=== PATIENT | female | born 1990 | race Caucasian/White ===

== ENCOUNTER 2019-05-31 23:21 | Inpatient (IN) | payer BC ==
[2019-06-01] MEDS ORDERED: Sodium Chloride 0.9% 2.5 ML Syringe FLUSH PRN (02:10)
[2019-06-01] MEDS ORDERED: Tranexamic Acid 1,000 MG in Sodium Chloride 0.9% 100 ML IV PRN (02:10)
[2019-06-01] MEDS ORDERED: Carboprost Tromethamine 250 MCG/1 ML Amp IM PRN (02:10)
[2019-06-01] MEDS ORDERED: Butorphanol 1 MG/ML SDV IVPUSH PRN (02:10)
[2019-06-01] MEDS ORDERED: Lidocaine 1% 50 ML MDV INJECT PRN (02:10)
[2019-06-01] MEDS ORDERED: Methylergonovine 0.2 MG/1 ML Amp IM PRN (02:10)
[2019-06-01] MEDS ORDERED: Sodium Chloride 0.9% 10 ML Syringe FLUSH PRN (02:10)
[2019-06-01] MEDS ORDERED: Nalbuphine 10 MG/1 ML Vial IVPUSH PRN (02:10)
[2019-06-01] MEDS ORDERED: Sodium Chloride 0.9% 10 ML SDV IV PRN (02:10)
[2019-06-01] MEDS ORDERED: Water For Irrigation,Sterile 1,000 ML Container IRR PRN (02:10)
[2019-06-01] MEDS ORDERED: Misoprostol 200 MCG Tab PO PRN (02:10)
[2019-06-01] MEDS ORDERED: Ondansetron 4 MG/2 ML SDV IVPUSH PRN (02:10)
[2019-06-01] MEDS ORDERED: Oxytocin/0.9 % Sodium Chloride 30 UNIT/500 ML BAG IV SCH ×2 (02:15→05:00)
[2019-06-01] MEDS: Lactated Ringers 1,000 ML IV SCH ×3 (02:35→05:00)
[2019-06-01] MEDS ORDERED: fentaNYL 100 MCG/2 ML SDV ONE (03:08)
[2019-06-01] MEDS ORDERED: Ropivacaine HCl/PF 100 ML ONE (03:09)
--- NOTE | 2019-06-01 03:37 | PCM.PREANE ---
Preanesthetic Assessment - Anesthesia/Transfusion/Family Hx Anesthesia History: Prior Anesthesia Without Reaction Family History of Anesthesia Reaction: No - Review of Systems Neurological: Other - Physical Assessment NPO Status Date: 06/01/19 NPO Status Time: 00:05 ASA Class: 1 - Lab Values: Laboratory Last Values WBC 14.70 K/uL (4.0-11.0) H 06/01/19 02:30 RBC 4.05 M/uL (4.30-5.90) L 06/01/19 02:30 Hgb 12.0 g/dL (12.0-16.0) 06/01/19 02:30 Hct 34.8 % (36.0-46.0) L 06/01/19 02:30 MCV 85.9 fL (80.0-98.0) 06/01/19 02:30 MCH 29.6 pg (27.0-32.0) 06/01/19 02:30 MCHC 34.5 g/dL (31.0-37.0) 06/01/19 02:30 RDW Std Deviation 42.0 fl (28.0-62.0) 06/01/19 02:30 RDW Coeff of Megan 14 % (11.0-15.0) 06/01/19 02:30 Plt Count 282 K/uL (150-400) 06/01/19 02:30 MPV 10.50 fL (7.40-12.00) 06/01/19 02:30 Nucleated RBC % 0.0 /100WBC 06/01/19 02:30 Nucleated RBCs # 0 K/uL 06/01/19 02:30 Blood Type AB POSITIVE 06/01/19 02:10 Antibody Screen NEGATIVE 06/01/19 02:10 - Allergies Allergies/Adverse Reactions: Allergies Allergy/AdvReac Type Severity Reaction Status Date / Time No Known Allergies Allergy Verified 06/01/19 02:22 - Acknowledgements Anesthesia Type Planned: Epidural Pt an Appropriate Candidate for the Planned Anesthesia: Yes Alternatives and Risks of Anesthesia Discussed w Pt/Guardian: Yes Pt/Guardian Understands and Agrees with Anesthesia Plan: Yes PreAnesthesia Questionnaire - CURRENT (IN HOUSE) MEDS Current Meds: Current Medications Butorphanol Tartrate (Stadol) 1 mg IVPUSH Q1H PRN PRN Reason: Pain Carboprost Tromethamine (Hemabate Ds) 250 mcg IM ASDIRECTED PRN PRN Reason: Post Hemorrhage Tranexamic Acid 1,000 mg/ (Sodium Chloride) 110 mls @ 660 mls/hr IV ONETIME PRN PRN Reason: Bleeding Lactated Ringer's (Ringers, Lactated) 1,000 mls @ 150 mls/hr IV ASDIRECTED [facility] Last Admin: 06/01/19 03:27 Dose: 999 mls/hr Oxytocin/Sodium Chloride (Oxytocin 30 Unit/500 Ml-Ns) 30 unit in 500 mls @ 500 mls/hr IV TITRATE [facility] Lidocaine HCl (Xylocaine 1%) 50 ml INJECT ONETIME PRN PRN Reason: Laceration repair Methylergonovine Maleate (Methergine) 0.2 mg IM ASDIRECTED PRN PRN Reason: Post Hemorrhage Misoprostol (Cytotec) 200 mcg PO ONETIME PRN PRN Reason: Post Hemorrhage Nalbuphine HCl (Nubain) 10 mg IVPUSH Q1H PRN PRN Reason: Pain (severe 7-10) Ondansetron HCl (Zofran) 4 mg IVPUSH Q4H PRN PRN Reason: Nausea/Vomiting Sodium Chloride (Saline Flush) 10 ml FLUSH ASDIRECTED PRN PRN Reason: Keep Vein Open Sodium Chloride (Saline Flush) 2.5 ml FLUSH ASDIRECTED PRN PRN Reason: Keep Vein Open Sodium Chloride (Normal Saline) 10 ml IV ASDIRECTED PRN PRN Reason: IV Use Sterile Water (Sterile Water For Irrigation) 1,000 ml IRR ASDIRECTED PRN PRN Reason: delivery Discontinued Medications Fentanyl (Sublimaze) Confirm Administered Dose 100 mcg .ROUTE .STK-MED ONE Stop: 06/01/19 03:09 Ropivacaine (Naropin 0.2%) Confirm Administered Dose 100 mls @ as directed .ROUTE .STK-MED ONE Stop: 06/01/19 03:10
--- NOTE | 2019-06-01 03:41 | PCM.PRNOTE ---
- Free Text/Narrative Note: Anes Note Patient requests epidural for L&D. Sitting position, level L3-L4 midline approach. Sterile technique, chloraprep scrub to lumbar area. Sterile fenestrated drape applied. Epidural space easily achieved using VANESSA technique. VANESSA at 4 cm. Cath thrreaded 5 cm with ease. Cath secured at skin at 10 cm using sterile clear adhesive dressing. 0323 Test 3 cc 1.5% lido wtih epi negative. 0326 Load 10 cc 0.2% ropivicaine with 1 mcg cc fentanyl in slow divided doses. 0329 Pump started with 90 cc same solution at 8 cc hr with 6 cc q 20 min prn bolus. Michael well. Time with patient [id number] Terrance Pineda PROJECT DIRECTOR
[2019-06-01] MEDS ORDERED: Terbutaline 1 MG/ML SDV SUBCUT PRN (04:57)
[2019-06-01] MEDS ORDERED: oxyCODONE 5 MG Tab PO PRN (08:58)
[2019-06-01] MEDS ORDERED: Docusate Sodium 100 MG Cap PO PRN (08:58)
[2019-06-01] MEDS ORDERED: Bisacodyl 10 MG Supp RECTAL PRN (08:58)
[2019-06-01] MEDS ORDERED: Lanolin 100% Cream 7 GM Tube TOP PRN (08:58)
[2019-06-01] MEDS ORDERED: Witch Hazel Medicated Pads 40/Jar TOP PRN (08:58)
[2019-06-01] MEDS ORDERED: Ibuprofen 400 MG Tab PO PRN (08:58)
[2019-06-01] MEDS ORDERED: Acetaminophen 500 MG Tab PO PRN ×2 (08:58)
[2019-06-01] MEDS ORDERED: Benzocaine/Menthol 20%-0.5% Spray 78 GM Cannister TOP PRN (08:58)
--- NOTE | 2019-06-01 09:04 | PCM.DEL ---
L & D Note - General Info Date of Service: 06/01/19 Mother's Due Date: 06/03/19 - Delivery Note Labor: Augmented by ARM, Augmented by Oxytocin Delivery Outcome: Livebirth Delivery Method: Spontaneous Vaginal Delivery-Single Presentation: Left Occiput Anterior (ROJELIO) Nuchal Cord: None Anesthesia Type: Epidural Anesthetic: Lidocaine (Xylocaine) 1% Plain Local Anesthetic Volume: 4cc Laceration: 2nd Degree Suture type: Other (monocryl) Suture size: 2-0 Placenta: Intact Cord: 3 Vessels Estimated Blood Loss: 300 Resuscitation Needed: No Score 1 min: 8 Score 5 min: 9 Delivery Comments (Free Text/Narrative):: live female delivered at 803am , 8/9 , weight 3630g - General Info Date of Service: 06/01/19 - Patient Data Weight - Most Recent: 91.172 kg I&O - Last 24 Hours: Intake & Output 05/31/19 06/01/19 06/01/19 22:59 06:59 14:59 Intake Total 950 Balance 950 Lab Results Last 24 Hours: Laboratory Results - last 24 hr 06/01/19 06/01/19 Range/Units 02:10 02:30 WBC 14.70 H (4.0-11.0) K/uL RBC 4.05 L (4.30-5.90) M/uL Hgb 12.0 (12.0-16.0) g/dL Hct 34.8 L (36.0-46.0) % MCV 85.9 (80.0-98.0) fL MCH 29.6 (27.0-32.0) pg MCHC 34.5 (31.0-37.0) g/dL RDW Std Deviation 42.0 (28.0-62.0) fl RDW Coeff of Megan 14 (11.0-15.0) % Plt Count 282 (150-400) K/uL MPV 10.50 (7.40-12.00) fL Nucleated RBC % 0.0 /100WBC Nucleated RBCs # 0 K/uL Blood Type AB POSITIVE Antibody Screen NEGATIVE Med Orders - Current: Current Medications Acetaminophen (Tylenol Extra Strength) 500 mg PO Q4H PRN PRN Reason: Pain Acetaminophen (Tylenol Extra Strength) 1,000 mg PO Q4H PRN PRN Reason: Pain Benzocaine/Menthol (Dermoplast Pain Relief 20%-0.5% [place]) 78 gm TOP ASDIRECTED PRN PRN Reason: Perineal Comfort Measure Bisacodyl (Dulcolax) 10 mg RECTAL ONETIME PRN PRN Reason: Constipation Carboprost Tromethamine (Hemabate Ds) 250 mcg IM ASDIRECTED PRN PRN Reason: Post Hemorrhage Docusate Sodium (Colace) 100 mg PO BID PRN PRN Reason: Constipation Emollient Ointment (Lansinoh Hpa) 0 gm TOP ASDIRECTED PRN PRN Reason: Sore Nipples Tranexamic Acid 1,000 mg/ (Sodium Chloride) 110 mls @ 660 mls/hr IV ONETIME PRN PRN Reason: Bleeding Lactated Ringer's (Ringers, Lactated) 1,000 mls @ 150 mls/hr IV ASDIRECTED [facility] Last Admin: 06/01/19 05:00 Dose: 125 mls/hr Oxytocin/Sodium Chloride (Oxytocin 30 Unit/500 Ml-Ns) 30 unit in 500 mls @ 500 mls/hr IV TITRATE [facility] Oxytocin/Sodium Chloride (Oxytocin 30 Unit/500 Ml-Ns) 30 unit in 500 mls @ 2 mls/hr IV TITRATE [facility]; Protocol Last Titration: 06/01/19 07:30 Dose: 6 munits/min, 6 mls/hr Ibuprofen (Motrin) 400 mg PO Q4H PRN PRN Reason: Pain Ibuprofen (Motrin) 800 mg PO Q6H PRN PRN Reason: Pain Lidocaine HCl (Xylocaine 1%) 50 ml INJECT ONETIME PRN PRN Reason: Laceration repair Last Admin: 06/01/19 08:05 Dose: 50 ml Methylergonovine Maleate (Methergine) 0.2 mg IM ASDIRECTED PRN PRN Reason: Post Hemorrhage Misoprostol (Cytotec) 200 mcg PO ONETIME PRN PRN Reason: Post Hemorrhage Nalbuphine HCl (Nubain) 10 mg IVPUSH Q1H PRN PRN Reason: Pain (severe 7-10) Ondansetron HCl (Zofran) 4 mg IVPUSH Q4H PRN PRN Reason: Nausea/Vomiting Oxycodone HCl (Oxycodone) 5 mg PO Q2H PRN PRN Reason: Pain Sodium Chloride (Saline Flush) 10 ml FLUSH ASDIRECTED PRN PRN Reason: Keep Vein Open Sodium Chloride (Saline Flush) 2.5 ml FLUSH ASDIRECTED PRN PRN Reason: Keep Vein Open Sodium Chloride (Normal Saline) 10 ml IV ASDIRECTED PRN PRN Reason: IV Use Sterile Water (Sterile Water For Irrigation) 1,000 ml IRR ASDIRECTED PRN PRN Reason: delivery Last Admin: 06/01/19 08:00 Dose: 1,000 ml Terbutaline Sulfate (Brethine) 0.25 mg SUBCUT ASDIRECTED PRN PRN Reason: Tacysystole Witch Sima (Tucks) 1 pad TOP ASDIRECTED PRN PRN Reason: comfort care Discontinued Medications Butorphanol Tartrate (Stadol) 1 mg IVPUSH Q1H PRN PRN Reason: Pain Fentanyl (Sublimaze) Confirm Administered Dose 100 mcg .ROUTE .STK-MED ONE Stop: 06/01/19 03:09 Ropivacaine (Naropin 0.2%) Confirm Administered Dose 100 mls @ as directed .ROUTE .STK-MED ONE Stop: 06/01/19 03:10 - Problem List & Annotations (1) Vaginal delivery SNOMED Code(s): 298383194 Code(s): O80 - ENCOUNTER FOR FULL-TERM UNCOMPLICATED DELIVERY Status: Acute Current Visit: Yes - Problem List Review Problem List Initiated/Reviewed/Updated: Yes - My Orders Last 24 Hours: My Active Orders 05/31/19 23:54 Up ad Kellen [RC] ASDIRECTED Vital Signs [RC] PER UNIT ROUTINE 06/01/19 02:10 RAPID PLASMA REAGIN, QUANT [REF] Routine Carboprost Tromethamine [Hemabate DS] 250 mcg IM ASDIRECTED PRN Lidocaine 1% [Xylocaine 1%] 50 ml INJECT ONETIME PRN Methylergonovine [Methergine] 0.2 mg IM ASDIRECTED PRN Nalbuphine [Nubain] 10 mg IVPUSH Q1H PRN Ondansetron [Zofran] 4 mg IVPUSH Q4H PRN Sodium Chloride 0.9% [Normal Saline] 10 ml IV ASDIRECTED PRN Sodium Chloride 0.9% [Saline Flush] 10 ml FLUSH ASDIRECTED PRN Sodium Chloride 0.9% [Saline Flush] 2.5 ml FLUSH ASDIRECTED PRN Tranexamic Acid [Cyklokapron] 1,000 mg Sodium Chloride 0.9% [Normal Saline] 100 ml IV ONETIME Water For Irrigation,Sterile [Sterile Water for Irrigation] 1,000 ml IRR ASDIRECTED PRN miSOPROStoL [Cytotec] 200 mcg PO ONETIME PRN 06/01/19 02:11 Patient Status [ADT] Routine May Shower [RC] ASDIRECTED Notify Provider [RC] PRN Up ad Kellen [RC] ASDIRECTED Vital Signs [RC] PER UNIT ROUTINE Peripheral IV Insertion Adult [OM.PC] Routine 06/01/19 02:15 Lactated Ringers [Ringers, Lactated] 1,000 ml IV ASDIRECTED Oxytocin/0.9 % Sodium Chloride [Oxytocin 30 Unit/500 ML-NS] 30 unit in 500 ml IV TITRATE 06/01/19 04:57 Bedrest Bathroom Privileges [RC] ASDIRECTED Communication Order [RC] ASDIRECTED Communication Order [RC] ASDIRECTED Notify Provider [RC] PRN Oxygen Therapy [RC] ASDIRECTED Vital Signs [RC] PER UNIT ROUTINE Terbutaline [Brethine] 0.25 mg SUBCUT ASDIRECTED PRN 06/01/19 05:00 Oxytocin/0.9 % Sodium Chloride [Oxytocin 30 Unit/500 ML-NS] 30 unit in 500 ml IV TITRATE Medication Administration Instruction [OM.PC] Q3H 06/01/19 08:58 Acetaminophen [Tylenol Extra Strength] 1,000 mg PO Q4H PRN Acetaminophen [Tylenol Extra Strength] 500 mg PO Q4H PRN Benzocaine/Menthol [Dermoplast Pain Relief 20%-0.5% [place]] 78 gm TOP ASDIRECTED PRN Docusate Sodium [Colace] 100 mg PO BID PRN Ibuprofen [Motrin] 400 mg PO Q4H PRN Ibuprofen [Motrin] 800 mg PO Q6H PRN Lanolin [Lansinoh HPA] See Dose Instructions TOP ASDIRECTED PRN Witch Sima [Tucks] 1 pad TOP ASDIRECTED PRN bisacodyL [Dulcolax] 10 mg RECTAL ONETIME PRN oxyCODONE 5 mg PO Q2H PRN Resuscitation Status Routine 06/01/19 08:59 Patient Status [ADT] Routine May Shower [RC] ASDIRECTED Up ad Kellen [RC] ASDIRECTED Vital Signs [RC] PER UNIT ROUTINE Assess Lochia [WOMSER] Per Unit Routine Assess Uterine Involution [WOMSER] Per Unit Routine Peripheral IV Discontinue [OM.PC] Routine 06/02/19 05:11 HEMOGLOBIN/HEMATOCRIT,HH [HEME] Timed
[2019-06-01] MEDS: Ibuprofen 800 MG Tab PO PRN ×2 (11:38→17:46)
--- NOTE | 2019-06-01 14:01 | OR ---
SURGEON: WILFREDO BURT DATE OF PROCEDURE: 06/01/2019 PREOPERATIVE DIAGNOSIS: A 29-year-old G1, P0, at 39 weeks and 5 days, in early labor. POSTOPERATIVE DIAGNOSIS: A 29-year-old G1, P0, at 39 weeks and 5 days, in early labor. PROCEDURE: 1. Normal spontaneous vaginal delivery. 2. Repair of second-degree vaginal laceration. ANESTHESIA: Epidural. NOTES AND FINDINGS: Live female delivered at 8:03, score was 8 and 9, weight is 3630 g. EBL is 300. BRIEF HISTORY: The patient is a 29-year-old, G1, P0, at 39 weeks and 5 days, who came in complaining of contractions. She made change. She became from 3 to 4 to 6 to active labor. The patient had a history of spondylolisthesis and seen Anesthesia in consult, which recommended anesthesia at a higher level of L2-L3. The patient came in and she was admitted. She made change to about 6 cm. She was ruptured, thick meconium was noted. Contractions were spacing apart. She was started on Pitocin and she made change and she became fully dilated. During the labor course, she occasionally had some late deceleration which resolved with intrauterine resuscitation. With the patient being fully dilated, she was encouraged to push. DESCRIPTION OF PROCEDURE: With good patient effort, she delivered the head, followed subsequently by the anterior and posterior shoulder. The body of the was delivered. was placed on maternal abdomen. Delayed cord clamping was observed. The cord was clamped and cut. The cord blood gases were obtained. The placenta was delivered via controlled cord traction. Then, the perineum was inspected and noted to have a second-degree laceration. 1% lidocaine was done and the patient had the second-degree tear repaired in layers with 2-0 Monocryl. Perineum was inspected, noted to be intact after repair, and the bleeding was noted to be normal lochia. All instrument and pad counts were correct x2. The patient tolerated the procedure well and was left in Labor and Delivery room in stable condition. CHRISTAL NORRIS /[id number] MTDEverett
[2019-06-02] MEDS: Ibuprofen 800 MG Tab PO PRN (03:55)
--- NOTE | 2019-06-02 07:09 | PCM48HPAN ---
Post Anesthesia Note - EVALUATION WITHIN 48HRS OF ANESTHETIC Vital Signs in Normal Range: Yes Patient Participated in Evaluation: Yes Respiratory Function Stable: Yes Airway Patent: Yes Cardiovascular Function Stable: Yes Hydration Status Stable: Yes Pain Control Satisfactory: Yes Nausea and Vomiting Control Satisfactory: Yes Mental Status Recovered: Yes Vital Signs: Last Vital Signs Temp 36.7 C 06/02/19 04:00 Pulse 68 06/02/19 04:00 Resp 14 06/02/19 04:00 BP 129/70 06/02/19 04:00 Pulse Ox 98 06/02/19 04:00
--- NOTE | 2019-06-02 08:36 | PCM.PNPP ---
- General Info Date of Service: 06/02/19 Functional Status: Reports: Pain Controlled, Tolerating Diet, Ambulating, Urinating - Review of Systems General: Reports: No Symptoms HEENT: Reports: No Symptoms Pulmonary: Reports: No Symptoms Cardiovascular: Reports: No Symptoms Gastrointestinal: Reports: No Symptoms Genitourinary: Reports: No Symptoms Musculoskeletal: Reports: No Symptoms Skin: Reports: No Symptoms Neurological: Reports: No Symptoms Psychiatric: Reports: No Symptoms - Patient Data Vital Signs - Most Recent: Last Vital Signs Temp 36.4 C 06/02/19 08:09 Pulse 68 06/02/19 04:00 Resp 15 06/02/19 08:09 BP 118/78 06/02/19 08:09 Pulse Ox 97 06/02/19 08:09 Weight - Most Recent: 91.172 kg Lab Results - Last 24 Hours: Laboratory Results - last 24 hr 06/02/19 Range/Units 05:30 Hgb 10.9 L (12.0-16.0) g/dL Hct 33.0 L (36.0-46.0) % Med Orders - Current: Current Medications Acetaminophen (Tylenol Extra Strength) 500 mg PO Q4H PRN PRN Reason: Pain Acetaminophen (Tylenol Extra Strength) 1,000 mg PO Q4H PRN PRN Reason: Pain Last Admin: 06/02/19 03:55 Dose: 1,000 mg Benzocaine/Menthol (Dermoplast Pain Relief 20%-0.5% [place]) 78 gm TOP ASDIRECTED PRN PRN Reason: Perineal Comfort Measure Last Admin: 06/01/19 11:38 Dose: 1 cap Bisacodyl (Dulcolax) 10 mg RECTAL ONETIME PRN PRN Reason: Constipation Carboprost Tromethamine (Hemabate Ds) 250 mcg IM ASDIRECTED PRN PRN Reason: Post Hemorrhage Docusate Sodium (Colace) 100 mg PO BID PRN PRN Reason: Constipation Last Admin: 06/01/19 23:59 Dose: 100 mg Emollient Ointment (Lansinoh Hpa) 0 gm TOP ASDIRECTED PRN PRN Reason: Sore Nipples Last Admin: 06/01/19 11:37 Dose: 1 tube Tranexamic Acid 1,000 mg/ (Sodium Chloride) 110 mls @ 660 mls/hr IV ONETIME PRN PRN Reason: Bleeding Lactated Ringer's (Ringers, Lactated) 1,000 mls @ 150 mls/hr IV ASDIRECTED [facility] Last Admin: 06/01/19 05:00 Dose: 125 mls/hr Oxytocin/Sodium Chloride (Oxytocin 30 Unit/500 Ml-Ns) 30 unit in 500 mls @ 500 mls/hr IV TITRATE [facility] Oxytocin/Sodium Chloride (Oxytocin 30 Unit/500 Ml-Ns) 30 unit in 500 mls @ 2 mls/hr IV TITRATE [facility]; Protocol Last Titration: 06/01/19 07:30 Dose: 6 munits/min, 6 mls/hr Ibuprofen (Motrin) 400 mg PO Q4H PRN PRN Reason: Pain Ibuprofen (Motrin) 800 mg PO Q6H PRN PRN Reason: Pain Last Admin: 06/02/19 03:55 Dose: 800 mg Lidocaine HCl (Xylocaine 1%) 50 ml INJECT ONETIME PRN PRN Reason: Laceration repair Last Admin: 06/01/19 08:05 Dose: 50 ml Methylergonovine Maleate (Methergine) 0.2 mg IM ASDIRECTED PRN PRN Reason: Post Hemorrhage Misoprostol (Cytotec) 200 mcg PO ONETIME PRN PRN Reason: Post Hemorrhage Nalbuphine HCl (Nubain) 10 mg IVPUSH Q1H PRN PRN Reason: Pain (severe 7-10) Ondansetron HCl (Zofran) 4 mg IVPUSH Q4H PRN PRN Reason: Nausea/Vomiting Oxycodone HCl (Oxycodone) 5 mg PO Q2H PRN PRN Reason: Pain Sodium Chloride (Saline Flush) 10 ml FLUSH ASDIRECTED PRN PRN Reason: Keep Vein Open Sodium Chloride (Saline Flush) 2.5 ml FLUSH ASDIRECTED PRN PRN Reason: Keep Vein Open Sodium Chloride (Normal Saline) 10 ml IV ASDIRECTED PRN PRN Reason: IV Use Sterile Water (Sterile Water For Irrigation) 1,000 ml IRR ASDIRECTED PRN PRN Reason: delivery Last Admin: 06/01/19 08:00 Dose: 1,000 ml Terbutaline Sulfate (Brethine) 0.25 mg SUBCUT ASDIRECTED PRN PRN Reason: Tacysystole Witch Sima (Tucks) 1 pad TOP ASDIRECTED PRN PRN Reason: comfort care Last Admin: 06/01/19 11:37 Dose: 1 tub Discontinued Medications Butorphanol Tartrate (Stadol) 1 mg IVPUSH Q1H PRN PRN Reason: Pain Fentanyl (Sublimaze) Confirm Administered Dose 100 mcg .ROUTE .STK-MED ONE Stop: 06/01/19 03:09 Ropivacaine (Naropin 0.2%) Confirm Administered Dose 100 mls @ as directed .ROUTE .STK-MED ONE Stop: 06/01/19 03:10 - Infant Interaction Disposition, : to Nursery Infant Feeding: Breastfed Infant; Nursed Well Support Person: Significant Other - Recovery Exam Fundal Tone: Firm Fundal Level: 2 Fingerbreadths Below Umbilicus Fundal Placement: Midline Lochia Amount: Scant Lochia Color: Rubra/Red Perineum Description: Intact, Minimal Bruising/Swelling, Ecchymotic Episiotomy/Laceration: None Bladder Status: Voiding Urinary Elimination: Voided - Exam General: Alert, Oriented HEENT: Pupils Equal Neck: Supple Lungs: Clear to Auscultation, Normal Respiratory Effort GI/Abdominal Exam: Soft, Non-Tender, No Distention Extremities: Non-Tender, No Pedal Edema, Normal Capillary Refill Skin: Warm, Dry, Intact Psy/Mental Status: Alert, Normal Affect, Normal Mood - Problem List & Annotations (1) Vaginal delivery SNOMED Code(s): 831822344 Code(s): O80 - ENCOUNTER FOR FULL-TERM UNCOMPLICATED DELIVERY Status: Acute Current Visit: Yes - Problem List Review Problem List Initiated/Reviewed/Updated: Yes - My Orders Last 24 Hours: My Active Orders 06/02/19 08:34 Ready for Discharge [RC] PER UNIT ROUTINE - Assessment Assessment:: PPD#1 after , stable, minimal lochia, well, would like to go home today. - Plan Plan:: Dismiss to home. Discharge instructions reviewed.
== END 2019-06-02 12:25 | disposition home or self-care (01) | DRG 560 ==
LOC: MW.OBCHECK 23:21 → MW.OB 06-01 02:11 → OBSVTOIN 06-01 08:59 → MW.OB 06-01 12:00
PROVIDERS: ADMIT Obstetrics & Gynecology; ATTEND Obstetrics & Gynecology
PROC: 10E0XZZ Delivery of Products of Conception, External Approach (ICD-10-PCS; principal; 2019-06-01)
PROC: 0KQM0ZZ Repair Perineum Muscle, Open Approach (ICD-10-PCS; 2019-06-01)
PROC: 3E0R3BZ Introduction of Anesthetic Agent into Spinal Canal, Percutaneous Approach (ICD-10-PCS; 2019-06-01)
PROC: 10907ZC Drainage of Amniotic Fluid, Therapeutic from Products of Conception, Via Natural or Artificial Opening (ICD-10-PCS; 2019-06-01)
DX: O77.0 Labor and delivery complicated by meconium in amniotic fluid (principal); Z3A.39 39 weeks gestation of pregnancy; Z37.0 Single live birth; O70.1 Second degree perineal laceration during delivery
CPT/HCPCS: 01967; 36415; 51702; 59025; 59409; 85014; 85018; 85027; 86592; 86850; 86900; 86901; A9270-GY; J2001; J2590; J7120

== ENCOUNTER 2020-01-26 16:12 | Emergency (ER) | payer BC, OTHER ==
[2020-01-26] MEDS ORDERED: Sodium Chloride 0.9% 1,000 ML IV ONE (16:53)
[2020-01-26] MEDS ORDERED: Ondansetron 4 MG/2 ML SDV IVPUSH ONE (16:53)
--- NOTE | 2020-01-26 17:00 | EDM.PDOC ---
ED HPI GENERAL MEDICAL PROBLEM - General Chief Complaint: Fever Stated Complaint: COVID TESTING Time Seen by Provider: 01/26/20 16:16 Source of Information: Reports: Patient History Limitations: Reports: No Limitations - History of Present Illness INITIAL COMMENTS - FREE TEXT/NARRATIVE: Is reporting body aches, cold sweats, nausea, vomiting x2, fever up to 100.6 degrees and chills that started about 6 AM. She has been drinking water today but not eating. She is otherwise healthy without chronic medical problems she did take 2 Advil earlier today. She has had no COVID exposures that she knows of but she is shaking, crying and quite hysterical in fear that she may be COVID positive. No dysuria, constipation, diarrhea, abdominal pain, SOB, cough, chest pain. Generalized Pain Score (Numeric/FACES): 3 - Related Data Allergies Allergy/AdvReac Type Severity Reaction Status Date / Time No Known Allergies Allergy Verified 01/26/20 16:23 Home Meds: Home Meds . [No Known Home Meds] 01/26/20 [History] Past Medical History - Past Health History Medical/Surgical History: Denies Medical/Surgical History Other Respiratory History: pleurisy [employer] History: Reports: Psychiatric History: Reports: Anxiety - Infectious Disease History Infectious Disease History: Reports: Chicken Pox Social & Family History - Family History Family Medical History: Noncontributory - Tobacco Use Smoking Status *Q: Never Smoker Second Hand Smoke Exposure: No - Caffeine Use Caffeine Use: Reports: Coffee - Recreational Drug Use Recreational Drug Use: No ED ROS ENT - Review of Systems Review Of Systems: Comprehensive ROS is negative, except as noted in HPI. ED EXAM, ENT - Physical Exam Exam: See Below Exam Limited By: No Limitations General Appearance: Alert, Moderate Distress (due to fear) Ears: Normal External Exam, Normal TMs Nose: Normal Inspection, Normal Mucousa Mouth/Throat: Normal Inspection, Normal Oropharynx Head: Atraumatic, Normocephalic Neck: Normal Inspection, Supple, Non-Tender, Full Range of Motion. No: Lymphadenopathy (L), Lymphadenopathy (R) Respiratory/Chest: No Respiratory Distress, Lungs Clear, Normal Breath Sounds Cardiovascular: Normal Peripheral Pulses, Regular Rate, Rhythm, No Edema, No Murmur GI/Abdominal: Soft, Non-Tender, No Distention Back: Normal Inspection Extremities: Normal Inspection Neurological: Alert, Oriented, Normal Cognition Psychiatric: Normal Affect, Normal Mood Skin: Warm, Dry, Intact, Normal Color, No Rash Lymphatic: No Adenopathy Course - Vital Signs Last Recorded V/S: Last Vital Signs Temp 36.7 C 01/26/20 16:24 Pulse 122 H 01/26/20 16:24 Resp 22 H 01/26/20 16:24 BP 128/75 01/26/20 16:24 Pulse Ox 96 01/26/20 16:24 - Orders/Labs/Meds Labs: Laboratory Tests 01/26/20 Range/Units 17:10 COVID-19 (SUZETTE) NEGATIVE (NEGATIVE) Meds: Medications Discontinued Medications Generic Name Dose Route Start Last Admin Trade Name Freq PRN Reason Stop Dose Admin Sodium Chloride 1,000 mls @ 999 mls/hr 01/26/20 16:53 01/26/20 17:19 Normal Saline IV 01/26/20 17:53 Not Given STAT ONE Ondansetron HCl 4 mg 01/26/20 16:53 01/26/20 17:19 Zofran IVPUSH 01/26/20 16:54 Not Given ONETIME ONE - Re-Assessments/Exams Free Text/Narrative Re-Assessment/Exam: 01/26/20 17:10 Declines labs, IV fluids and antiemetic. She states that she only wants a COVID test. Departure - Departure Time of Disposition: 17:44 Disposition: Home, Self-Care 01 Condition: Good Clinical Impression: Anxiety Fever Qualifiers: Fever type: due to other condition Qualified Code(s): R50.81 - Fever presenting with conditions classified elsewhere - Discharge Information Referrals: PCP,None [Primary Care Provider] - Forms: ED Department Discharge Additional Instructions: The following information is given to patients seen in the emergency department who are being discharged to home. This information is to outline your options for follow-up care. We provide all patients seen in our emergency department with a follow-up referral. The need for follow-up, as well as the timing and circumstances, are variable depending upon the specifics of your emergency department visit. If you don't have a primary care physician on staff, we will provide you with a referral. We always advise you to contact your personal physician following an emergency department visit to inform them of the circumstance of the visit and for follow-up with them and/or the need for any referrals to a consulting specialist. The emergency department will also refer you to a specialist when appropriate. This referral assures that you have the opportunity for follow-up care with a specialist. All of these measure are taken in an effort to provide you with optimal care, which includes your follow-up. Under all circumstances we always encourage you to contact your private ysician who remains a resource for coordinating your care. When calling for follow-up care, please make the office aware that this follow-up is from your recent emergency room visit. If for any reason you are refused follow-up, please contact the [facility] Emergency Department at and asked to speak to the emergency department charge nurse. 1. Drink Plenty of fluids BRAT diet (was, rice, applesauce, toast) advance as tolerated 2. Aleve 2 tabs a.m. and p.m. or ibuprofen 2-3 tabs 3 times daily as needed for body aches. Tylenol extra strength every 6 hours as needed for fever 3. Stop watching the news. Relax and rest. Sepsis Event Note (ED) - Evaluation Sepsis Screening Result: No Definite Risk - Focused Exam Vital Signs: Vital Signs Temp Pulse Resp BP Pulse Ox 01/26/20 16:24 36.7 C 122 H 22 H 128/75 96
== END 2020-01-26 17:56 | disposition home or self-care (01) ==
LOC: MW.ED 16:12
DX: R50.81 Fever presenting with conditions classified elsewhere (principal); F41.9 Anxiety disorder, unspecified; Z20.828 Contact with and (suspected) exposure to other viral communicable diseases
CPT/HCPCS: 99282; 99283; U0002

== ENCOUNTER 2023-02-19 11:33 | Emergency (ER) | payer BC ==
[2023-02-19 12:39] LABS: BASOPHILS PERCENT AUTO 0.2 % (0.0-1.5); EOSINOPHILS ABSOLUTE AUTO 0.2 K/uL (0.0-0.7); EOSINOPHILS PERCENT AUTO 3.2 % (0.0-7.0); HEMATOCRIT 43.3 % (36.0-46.0); HEMOGLOBIN 14.5 g/dL (12.0-16.0); LYMPHOCYTES ABSOLUTE AUTO 1.1 K/uL (0.6-2.4); LYMPHOCYTES PERCENT AUTO 21.7 % (16.0-40.0); MEAN CORPUSCULAR HEMOGLOBIN 29.1 pg (27.0-32.0); MEAN CORPUSCULAR HGB CONC 33.5 g/dL (31.0-37.0); MEAN CORPUSCULAR VOLUME 86.8 fL (80.0-98.0); MONOCYTES ABSOLUTE AUTO 0.5 K/uL (0.0-0.8); MONOCYTES PERCENT AUTO 9.5 % (0.0-15.0); NEUTROPHILS ABSOLUTE AUTO 3.4 K/uL (1.4-5.7); NEUTROPHILS PERCENT AUTO 65.4 % (48.0-80.0); PLATELET COUNT,PLT 334 K/uL (150-400); RED BLOOD CELL COUNT 4.99 M/uL (4.30-5.90); WHITE BLOOD CELL COUNT,WBC 5.26 K/uL (4.0-11.0)
[2023-02-19 13:10] LABS: A/G RATIO 1.1 (0.9-1.6); BILIRUBIN TOTAL 0.3 mg/dL (0.2-1.0); CALCIUM 9.1 mg/dL (8.5-10.1); CARBON DIOXIDE,CO2 24.9 mmol/L (21.0-32.0); CREATININE 0.9 mg/dL (0.6-1.0); EST CRCL DRUG DOSING (CG) 83.23 mL/min; POTASSIUM,K 3.7 mmol/L (3.5-5.1); PROTEIN TOTAL,TP 7.8 g/dL (6.4-8.2)
[2023-02-19] MEDS ORDERED: Ketorolac 30 MG/ML SDV IVPUSH ONE (13:12)
[2023-02-19] MEDS ORDERED: Alum Hydro/Mag Hydro/Simeth XS 15 ML, Lidocaine 2% 5 ML PO ONE ×2 (13:13)
[2023-02-19] MEDS ORDERED: Ketorolac 30 MG/ML SDV IM ONE (13:31)
[2023-02-19] MEDS ORDERED: LORazepam 0.5 MG Tab PO ONE (14:03)
== END 2023-02-19 14:39 | disposition home or self-care (01) ==
LOC: MW.ED 11:33
DX: R07.9 Chest pain, unspecified (principal)
CPT/HCPCS: 36415; 71045; 80053; 84484; 84703; 85025; 85379; 93005; 96372; 99285; A9270; J1885; 93010

== ENCOUNTER 2023-11-09 16:07 | Emergency (ER) | payer BC ==
[2023-11-09] MEDS: Sodium Chloride 0.9% 10 ML Syringe FLUSH PRN (17:00)
[2023-11-09 17:01] LABS: BASOPHILS ABSOLUTE AUTO 0.03 K/uL (0.00-0.20); BASOPHILS PERCENT AUTO 0.5 % (0.0-1.0); EOSINOPHILS ABSOLUTE AUTO 0.17 K/uL (0.00-0.45); EOSINOPHILS PERCENT AUTO 2.8 % (0.0-6.0); HEMATOCRIT 41.7 % (37.0-47.0); HEMOGLOBIN 13.9 g/dL (12.0-16.0); IMMATURE GRAN ABSOLUTE AUTO 0.01 K/uL (0.00-0.05); IMMATURE GRAN PERCENT AUTO 0.2 % (0.0-0.4); LYMPHOCYTES PERCENT AUTO 27.7 % (24.0-44.0); MEAN CORPUSCULAR HEMOGLOBIN 28.8 pg (28.0-32.0); MEAN CORPUSCULAR HGB CONC 33.3 g/dL (32.0-36.0); MEAN CORPUSCULAR VOLUME 86.5 fL (83.0-99.0); MEAN PLATELET VOLUME 9.2 fL (9.4-12.3); MONOCYTES ABSOLUTE AUTO 0.45 K/uL (0.00-0.80); MONOCYTES PERCENT AUTO 7.3 % (0.0-8.0); NEUTROPHILS ABSOLUTE AUTO 3.77 K/uL (1.80-7.70); NEUTROPHILS PERCENT AUTO 61.5 % (41.0-71.0); PLATELET COUNT,PLT 322 K/uL (150-400); RED BLOOD CELL COUNT 4.82 M/uL (4.10-5.30); WHITE BLOOD CELL COUNT,WBC 6.13 K/uL (3.9-11.3)
[2023-11-09] MEDS: Sodium Chloride 0.9% 2.5 ML Syringe FLUSH PRN (17:01)
[2023-11-09 17:18] LABS: CARBON DIOXIDE,CO2 29.9 mmol/L (21.0-32.0); CREATININE 0.8 mg/dL (0.6-1.0); EST CRCL DRUG DOSING (CG) 92.76 mL/min; POTASSIUM,K 3.8 mmol/L (3.5-5.1)
[2023-11-09 17:26] LABS: HCG QUALITATIVE,SERUM NEGATIVE (NEG)
== END 2023-11-09 20:01 | disposition home or self-care (01) ==
LOC: MW.ED 16:07
DX: H92.01 Otalgia, right ear (principal); R07.0 Pain in throat
CPT/HCPCS: 36415; 70491; 80048; 84703; 85025; 86308; 99284; J3490

== ENCOUNTER 2023-12-22 09:16 | Emergency (ER) | payer BC ==
[2023-12-22] MEDS: Acetaminophen 325 MG Tab PO STA (10:08)
[2023-12-22] MEDS: Ondansetron 4 MG Tab.DIS PO STA (10:08)
[2023-12-22] MEDS: Ibuprofen 600 MG Tab PO STA (10:08)
[2023-12-22] MEDS: Lidocaine 1% 5 ML VIAL INJECT STA (10:40)
[2023-12-22] MEDS: Lidocaine/Epineph/Tetracaine 3 ML Syringe TOP ONE (10:40)
== END 2023-12-22 13:44 | disposition home or self-care (01) ==
LOC: MW.ED 09:16
DX: S01.112A Laceration without foreign body of left eyelid and periocular area, initial encounter (principal); S01.511A Laceration without foreign body of lip, initial encounter; S09.90XA Unspecified injury of head, initial encounter; W01.0XXA Fall on same level from slipping, tripping and stumbling without subsequent striking against object, initial encounter
CPT/HCPCS: 12013; 70450; 73590; 99284; A9270; 99283; J3490

== ENCOUNTER 2024-06-01 10:01 | Emergency (ER) | payer OTHER, BC ==
[2024-06-01] MEDS: Acetaminophen 500 MG Tab PO ONE (12:12)
[2024-06-01] MEDS: Cyclobenzaprine 10 MG Tab PO ONE (12:12)
== END 2024-06-01 13:00 | disposition home or self-care (01) ==
LOC: MW.ED 10:01
DX: S52.122A Displaced fracture of head of left radius, initial encounter for closed fracture (principal); Z75.8 Other problems related to medical facilities and other health care; W19.XXXA Unspecified fall, initial encounter
CPT/HCPCS: 29105; 73030; 73080; 73110; 99283; A9270